=== PATIENT | male | born 1960 | race Caucasian/White ===

== ENCOUNTER 2016-11-21 06:49 | Inpatient (IN) | payer OTHER ==
[~2016-11-21] VITALS: Ht 175.3 cm; Wt 105.5 kg
[~2016-11-21 06:49] MED LIST: ADDERALL10 MG PO; ATACAND4 MG PO; CIALIS5 MG PO; DITROPAN XL10 MG PO; EPIPEN ADU0.3 MG/0.3 IM; ESSENTIAL DAIL1 EACH PO; FIORICET,ESG1 TABLET PO; FLEXERIL10 MG PO; FLOMAX0.4 MG PO; KLONOPIN1 MG PO; NAMENDA5 MG PO; NEURONTIN100 MG PO; PROZAC40 MG PO; TOPAMAX25 MG PO; VENTOLIN HFA18 GM IH; ZYRTEC10 M2 PO
[2016-11-21 07:11] VITALS: BP 125/85
[2016-11-21 12:23] LABS: POINT-OF-CARE METER ID UU13113747
[2016-11-21 12:42] LABS: CREATININE 0.8 mg/dL (0.6-1.3); POTASSIUM 4.2 mEq/L (3.7-5.4)
[2016-11-21 12:51] LABS: EOSINOPHIL (%) 3.5 % (0-5); EOSINOPHIL COUNT 0.2 K/uL (0-0.3); HEMATOCRIT 38.7 % (38.0-50.0); IMMATURE GRANULOCYTE (%) 0.9 % (0.0-0.7); INSTRUMENT ABS NEUTROPHIL CT 3.6 K/uL; LYMPHOCYTE COUNT 0.7 K/uL (1.0-2.8); MCH 29.8 PG (29.0-34.0); MCHC 33.3 G/DL (30.0-36.0); MCV 89.4 FL (86-99); MONOCYTE (%) 2.6 % (3-12); MONOCYTE COUNT 0.1 K/uL (0-0.8); NEUTROPHIL (%) 78.1 % (45-76); NEUTROPHIL COUNT 3.6 K/uL (1.8-6.4); PLATELET COUNT 169 K/uL (156-360); RBC DIS.WIDTH-CV 12.4 % (11.8-14.6); RBC DIS.WIDTH-SD 40.7 % (39-53); RED BLOOD COUNT 4.33 M/uL (4.00-5.50); WHITE BLOOD COUNT 4.6 K/uL (4.1-10.2)
[2016-11-21 13:04] LABS: CHLORIDE 109 mEq/L (99-109); POTASSIUM 4.2 mEq/L (3.7-5.4); SODIUM 141 mEq/L (136-147)
[2016-11-21 13:05] LABS: INTER. NORMALIZED RATIO 1.1; PROTHROMBIN TIME 10.9 (9.2-11.2); PTT 26.9 (25-32)
[2016-11-21 13:06] LABS: GLUCOSE 85 mg/dL (70-99)
[2016-11-21 13:07] LABS: ANION GAP 8 MEQ/L (2-14)
[2016-11-21 13:10] LABS: GFR ESTIMATE (CALCULATED) > 59 mL/min/
[2016-11-21 13:11] LABS: UREA NITROGEN (BUN) 11 mg/dL (9-23)
[2016-11-21 13:17] LABS: TROP-I INTERPRETATION NEGATIVE; TROPONIN-I < 0.01 ng/mL (0.0-0.30)
[2016-11-21 14:29] LABS: TRIGLYCERIDES 116 MG/DL (Normal: <150)
[2016-11-21 14:30] LABS: HDL CHOLESTEROL 43 MG/DL (Desirable>=40); LDL CHOLESTEROL 121 mg/dL (Desirable<100); NON-HDL CHOLESTEROL 144 mg/dL (Desirable<160); TOTAL CHOLESTEROL 187 mg/dL (Desirable<200)
[2016-11-21 14:39] LABS: Estimated Average Glucose 100 mg/dL (70-123); HEMOGLOBIN A1c (GLYCOHEMOGLOB) 5.1 % HGB (Below 5.7)
[2016-11-21 17:04] VITALS: BP 139/84
[2016-11-21 19:56] VITALS: BP 99/63
[2016-11-21 21:48] LABS: TROP-I INTERPRETATION NEGATIVE; TROPONIN-I 0.01 ng/mL (0.0-0.30)
[2016-11-21 23:52] VITALS: BP 122/81
[2016-11-22] VITALS (8 sets, daily range): BP systolic 121–213; BP diastolic 69–90
[2016-11-22 03:40] LABS: CHLORIDE 111 mEq/L (99-109); POTASSIUM 4.3 mEq/L (3.7-5.4); SODIUM 140 mEq/L (136-147)
[2016-11-22 03:42] LABS: GLUCOSE 95 mg/dL (70-99)
[2016-11-22 03:43] LABS: ANION GAP 10 MEQ/L (2-14)
[2016-11-22 03:46] LABS: GFR ESTIMATE (CALCULATED) > 59 mL/min/
[2016-11-22 03:47] LABS: UREA NITROGEN (BUN) 11 mg/dL (9-23)
[2016-11-22 03:49] LABS: TROP-I INTERPRETATION NEGATIVE; TROPONIN-I < 0.01 ng/mL (0.0-0.30)
[2016-11-22 08:27] LABS: POINT-OF-CARE METER ID UU14174225
== END 2016-11-22 15:00 | disposition home or self-care (01) | DRG 989 ==
LOC: EME 06:49 → SDC 06:49 → EDSTATUS 11:19 → EDOF 13:13 → 5SOUTH 15:30 → SDC 15:43 → 5SOUTH 11-22 15:00
PROVIDERS: Emergency Medicine; Internal Medicine
PROC: 08N53ZZ Release Left Vitreous, Percutaneous Approach (ICD-10-PCS; principal; 2016-11-21)
DX: G40.909 Epilepsy, unspecified, not intractable, without status epilepticus (principal); H43.392 Other vitreous opacities, left eye; G62.9 Polyneuropathy, unspecified; R29.810 Facial weakness; I48.91 Unspecified atrial fibrillation; F41.9 Anxiety disorder, unspecified; I10 Essential (primary) hypertension; G43.909 Migraine, unspecified, not intractable, without status migrainosus; J45.909 Unspecified asthma, uncomplicated; Z86.718 Personal history of other venous thrombosis and embolism; Z68.29 Body mass index [BMI] 29.0-29.9, adult; Z79.01 Long term (current) use of anticoagulants; Z87.820 Personal history of traumatic brain injury; Z83.3 Family history of diabetes mellitus; Z82.49 Family history of ischemic heart disease and other diseases of the circulatory system
CPT/HCPCS: 70450; 70496; 70498; 70551; 71010; 80047; 80048; 80048 91; 80061; 81003; 82150; 82948; 83036; 83690; 84443; 84484; 85025; 85025 91; 85610; 85730; 86900; 86901; 93005; 94799; 95819; 99281; 99285; G0480; J0690; J1100; J1885; J1953; J2060; J2250; J2405; J3010; J7030; J7050; S0028

== ENCOUNTER 2017-09-04 05:45 | Day surgery (SDC) | payer OTHER ==
[~2017-09-04] VITALS: Ht 177.8 cm; Wt 97.6 kg
[~2017-09-04 05:45] MED LIST changes: +COUMADIN5 MG PO; +PAXIL30 MG PO
[2017-09-04 06:31] LABS: PTT 27.7 SEC (25-37)
[2017-09-04 06:34] VITALS: BP 125/83
[2017-09-04 08:56] VITALS: BP 138/83
[2017-09-04 09:23] VITALS: BP 149/83
== END 2017-09-04 09:36 | disposition home or self-care (01) ==
LOC: SDC 05:45
PROVIDERS: Internal Medicine
DX: H43.811 Vitreous degeneration, right eye (principal); H43.391 Other vitreous opacities, right eye; H33.311 Horseshoe tear of retina without detachment, right eye; I10 Essential (primary) hypertension; F90.0 Attention-deficit hyperactivity disorder, predominantly inattentive type; F41.8 Other specified anxiety disorders; E78.5 Hyperlipidemia, unspecified; G47.30 Sleep apnea, unspecified; J45.909 Unspecified asthma, uncomplicated; I25.2 Old myocardial infarction; Z86.73 Personal history of transient ischemic attack (TIA), and cerebral infarction without residual deficits; Z79.01 Long term (current) use of anticoagulants
CPT/HCPCS: 85610; 85730; J0690; J2250; J3300

== ENCOUNTER 2017-12-09 11:33 | Inpatient (IN) | payer OTHER ==
[~2017-12-09] VITALS: Ht 177.8 cm; Wt 103.8 kg
[2017-12-09] MEDS ORDERED: PRADAXA150 MG PO (12:43)
[2017-12-09] MEDS ORDERED: PAXIL30 MG PO (12:44)
[2017-12-09] MEDS ORDERED: CONCERTA54 MG PO (12:45)
[2017-12-09 12:57] LABS: EOSINOPHIL (%) 6.2 % (0-5); EOSINOPHIL COUNT 0.3 K/uL (0-0.3); HEMATOCRIT 39.6 % (38.0-50.0); HEMOGLOBIN 13.4 G/DL (12.5-16.6); IMMATURE GRANULOCYTE (%) 0.2 % (0.0-0.7); LYMPHOCYTE (%) 32.3 % (15-42); LYMPHOCYTE COUNT 1.3 K/uL (1.0-2.8); MCH 29.2 PG (29.0-34.0); MCHC 33.8 G/DL (30.0-36.0); MCV 86.3 FL (86-99); MONOCYTE (%) 8.5 % (3-12); MONOCYTE COUNT 0.3 K/uL (0-0.8); NEUTROPHIL (%) 51.8 % (45-76); NEUTROPHIL COUNT 2.1 K/uL (1.8-6.4); PLATELET COUNT 162 K/uL (156-360); RBC DIS.WIDTH-CV 12.7 % (11.8-14.6); RBC DIS.WIDTH-SD 39.8 % (39-53); RED BLOOD COUNT 4.59 M/uL (4.00-5.50)
[2017-12-09 13:02] LABS: INTER. NORMALIZED RATIO 1.1
[2017-12-09 13:26] LABS: CHLORIDE 106 MEQ/L (99-109); CREATINE KINASE 56 IU/L (1-294); CREATININE 0.9 MG/DL (0.6-1.3); GFR ESTIMATE (CALCULATED) > 59 mL/min/ (58.99-99999); GLUCOSE 102 mg/dL (70-99); POTASSIUM 3.8 MEQ/L (3.7-5.4); SODIUM 140 MEQ/L (136-147); TOTAL CK 56 IU/L (1-294); UREA NITROGEN (BUN) 9 mg/dL (9-23)
[2017-12-09 13:55] LABS: CKMB RELATIVE INDEX 1.8 (0.0-3.9)
[2017-12-09] MEDS ORDERED: CENTRUM SILVER1 EAC3 PO (16:02)
[2017-12-09] MEDS ORDERED: TYLENOL ARTHRI650 MG PO (16:03)
[2017-12-09] MEDS ORDERED: HYDROXYZINE HCL50 MG PO (16:05)
[2017-12-09 17:08] LABS: PCO2 47 mm Hg (35-45); PO2 78 mm Hg (80-100); pH 7.36 (7.35-7.45)
[2017-12-09 17:09] LABS: BASE EXCESS 0.6 mEq/L (-3 to +3); BICARBONATE 26.6 mEq/L (22-26); COMMENTS - BLOOD GASES C+; FI02 21 %; SITE LB
[2017-12-09 20:02] VITALS: BP 124/73
[2017-12-09 23:30] LABS: INTER. NORMALIZED RATIO 1.2
[2017-12-10] VITALS (7 sets, daily range): BP systolic 120–135; BP diastolic 58–90
[2017-12-10 02:30] LABS: PTT 158.3 SEC (25-37)
[2017-12-10 09:12] LABS: HEMOGLOBIN 12.4 G/DL (12.5-16.6); MCH 28.6 PG (29.0-34.0); MCHC 32.6 G/DL (30.0-36.0); MCV 87.8 FL (86-99); PLATELET COUNT 163 K/uL (156-360); RBC DIS.WIDTH-CV 12.8 % (11.8-14.6); RBC DIS.WIDTH-SD 41.1 % (39-53); RED BLOOD COUNT 4.33 M/uL (4.00-5.50); WHITE BLOOD COUNT 3.5 K/uL (4.1-10.2)
[2017-12-10 09:34] LABS: CHLORIDE 107 MEQ/L (99-109); CREATININE 0.8 MG/DL (0.6-1.3); GFR ESTIMATE (CALCULATED) > 59 mL/min/ (58.99-99999); GLUCOSE 86 mg/dL (70-99); POTASSIUM 4.1 MEQ/L (3.7-5.4); SODIUM 142 MEQ/L (136-147); UREA NITROGEN (BUN) 7 mg/dL (9-23)
[2017-12-10 15:51] LABS: PTT 67.8 SEC (25-37)
[2017-12-11] VITALS (8 sets, daily range): BP systolic 112–146; BP diastolic 64–94
[2017-12-11 06:20] LABS: EOSINOPHIL (%) 6.8 % (0-5); EOSINOPHIL COUNT 0.3 K/uL (0-0.3); HEMATOCRIT 37.4 % (38.0-50.0); HEMOGLOBIN 12.3 G/DL (12.5-16.6); IMMATURE GRANULOCYTE (%) 0.2 % (0.0-0.7); LYMPHOCYTE (%) 43.3 % (15-42); LYMPHOCYTE COUNT 1.8 K/uL (1.0-2.8); MCH 28.6 PG (29.0-34.0); MCHC 32.9 G/DL (30.0-36.0); MONOCYTE COUNT 0.4 K/uL (0-0.8); NEUTROPHIL (%) 39.7 % (45-76); NEUTROPHIL COUNT 1.6 K/uL (1.8-6.4); PLATELET COUNT 162 K/uL (156-360); RBC DIS.WIDTH-CV 12.7 % (11.8-14.6); WHITE BLOOD COUNT 4.1 K/uL (4.1-10.2)
[2017-12-12 03:30] VITALS: BP 114/85
[2017-12-12 05:36] LABS: BASOPHIL (%) 1.5 % (0-1); BASOPHIL COUNT 0.1 K/uL (0-0.1); EOSINOPHIL (%) 6.7 % (0-5); EOSINOPHIL COUNT 0.3 K/uL (0-0.3); HEMATOCRIT 39.9 % (38.0-50.0); HEMOGLOBIN 13.2 G/DL (12.5-16.6); LYMPHOCYTE (%) 39.5 % (15-42); LYMPHOCYTE COUNT 1.5 K/uL (1.0-2.8); MCHC 33.1 G/DL (30.0-36.0); MCV 87.7 FL (86-99); MONOCYTE COUNT 0.4 K/uL (0-0.8); NEUTROPHIL (%) 43.3 % (45-76); NEUTROPHIL COUNT 1.7 K/uL (1.8-6.4); PLATELET COUNT 182 K/uL (156-360); RBC DIS.WIDTH-CV 12.8 % (11.8-14.6); RBC DIS.WIDTH-SD 40.7 % (39-53); RED BLOOD COUNT 4.55 M/uL (4.00-5.50); WHITE BLOOD COUNT 3.9 K/uL (4.1-10.2)
[2017-12-12 06:01] LABS: PTT 30.1 SEC (25-37)
[2017-12-12 08:10] VITALS: BP 117/82
[2017-12-12 11:41] VITALS: BP 126/80
[2017-12-12 15:13] VITALS: BP 144/90
[2017-12-12 19:08] VITALS: BP 130/94
[2017-12-12 23:38] VITALS: BP 124/79
[2017-12-13 05:50] LABS: BASOPHIL (%) 1.4 % (0-1); BASOPHIL COUNT 0.1 K/uL (0-0.1); EOSINOPHIL (%) 7.4 % (0-5); EOSINOPHIL COUNT 0.3 K/uL (0-0.3); HEMOGLOBIN 12.5 G/DL (12.5-16.6); LYMPHOCYTE (%) 40.6 % (15-42); LYMPHOCYTE COUNT 1.8 K/uL (1.0-2.8); MCH 28.7 PG (29.0-34.0); MCHC 32.9 G/DL (30.0-36.0); MCV 87.2 FL (86-99); MONOCYTE (%) 8.4 % (3-12); MONOCYTE COUNT 0.4 K/uL (0-0.8); NEUTROPHIL (%) 42.2 % (45-76); NEUTROPHIL COUNT 1.8 K/uL (1.8-6.4); PLATELET COUNT 161 K/uL (156-360); RBC DIS.WIDTH-CV 12.7 % (11.8-14.6); RBC DIS.WIDTH-SD 40.6 % (39-53); RED BLOOD COUNT 4.36 M/uL (4.00-5.50); WHITE BLOOD COUNT 4.3 K/uL (4.1-10.2)
[2017-12-13 05:54] LABS: INTER. NORMALIZED RATIO 1.1
[2017-12-13 06:20] LABS: CHLORIDE 105 MEQ/L (99-109); CREATININE 0.8 MG/DL (0.6-1.3); GFR ESTIMATE (CALCULATED) > 59 mL/min/ (58.99-99999); GLUCOSE 89 mg/dL (70-99); POTASSIUM 3.9 MEQ/L (3.7-5.4); SODIUM 141 MEQ/L (136-147); UREA NITROGEN (BUN) 11 mg/dL (9-23)
[2017-12-13 07:48] VITALS: BP 152/90
[2017-12-13 16:05] VITALS: BP 132/80
[2017-12-13 23:20] VITALS: BP 138/83
[2017-12-14 07:04] LABS: INTER. NORMALIZED RATIO 1.3
[2017-12-14 07:07] LABS: PTT 57.9 SEC (25-37)
[2017-12-14 07:51] VITALS: BP 138/95
[2017-12-14 17:08] VITALS: BP 120/68
[2017-12-15 00:18] VITALS: BP 138/81
[2017-12-15 07:55] VITALS: BP 114/84
[2017-12-15 09:04] LABS: INTER. NORMALIZED RATIO 1.8
[2017-12-15 15:54] VITALS: BP 121/81
[2017-12-15 23:59] VITALS: BP 138/84
[2017-12-16 06:03] LABS: INTER. NORMALIZED RATIO 2.5
[2017-12-16 06:06] LABS: PTT 86.3 SEC (25-37)
[2017-12-16 07:07] VITALS: BP 148/72
[2017-12-16 07:39] LABS: HEMATOCRIT 38.7 % (38.0-50.0); HEMOGLOBIN 12.7 G/DL (12.5-16.6); MCHC 32.8 G/DL (30.0-36.0); MCV 88.4 FL (86-99); PLATELET COUNT 156 K/uL (156-360); RBC DIS.WIDTH-CV 12.9 % (11.8-14.6); RBC DIS.WIDTH-SD 41.8 % (39-53); RED BLOOD COUNT 4.38 M/uL (4.00-5.50); WHITE BLOOD COUNT 4.7 K/uL (4.1-10.2)
[2017-12-16 15:14] VITALS: BP 132/83
[2017-12-17 00:39] VITALS: BP 115/70
[2017-12-17 07:10] VITALS: BP 121/77
[2017-12-17] MEDS ORDERED: COUMADIN5 MG PO (10:16)
[2017-12-17] MEDS ORDERED: TRAMADOL HCL50 MG PO (10:18)
== END 2017-12-17 12:29 | disposition home or self-care (01) | DRG 300 ==
LOC: EME 11:33 → 5SOUTH 16:24 → EDOF 16:24 → ENRESERV 16:25 → 5SOUTH 19:06
PROVIDERS: Emergency Medicine; Hospitalist; Student in an Organized Health Care Education/Training Program
DX: I82.442 Acute embolism and thrombosis of left tibial vein (principal); I82.511 Chronic embolism and thrombosis of right femoral vein; D68.51 Activated protein C resistance; F41.9 Anxiety disorder, unspecified; F32.9 Major depressive disorder, single episode, unspecified; I10 Essential (primary) hypertension; K21.9 Gastro-esophageal reflux disease without esophagitis; G43.909 Migraine, unspecified, not intractable, without status migrainosus; F44.9 Dissociative and conversion disorder, unspecified; I95.1 Orthostatic hypotension; Z66 Do not resuscitate; Z85.71 Personal history of Hodgkin lymphoma; I25.2 Old myocardial infarction; Z86.718 Personal history of other venous thrombosis and embolism; Z86.73 Personal history of transient ischemic attack (TIA), and cerebral infarction without residual deficits; Z79.01 Long term (current) use of anticoagulants
CPT/HCPCS: 36600; 71045; 71275; 80048; 82550; 82553; 82803; 85025; 85027; 85610; 85730; 93005; 93970; 99281; 99285; J2270; J3010; J7030